=== PATIENT | female | born 1975 | race Caucasian/White ===

== ENCOUNTER 2017-12-24 12:02 | Emergency (ER) | payer BC ==
[~2017-12-24] VITALS: Ht 162.6 cm; Wt 72.6 kg
[2017-12-24] MEDS ORDERED: ADDERALL 10 MG10 MG PO (12:12)
[2017-12-24] MEDS ORDERED: NORCO 5-325 TA1 EACH PO (12:12)
[2017-12-24] MEDS ORDERED: CEFDINIR300 MG PO (12:34)
[2017-12-24 12:48] LABS: ABSOLUTE EOSINOPHILS 0.1 thou/uL (0.0-0.7); ABSOLUTE LYMPHOCYTES 1.9 thou/uL (0.8-5.3); ABSOLUTE MONOCYTES 0.6 thou/uL (0.0-1.2); ABSOLUTE NEUTROPHILS 2.9 thou/uL (1.6-8.1); BASOPHILS 0.6 %; EOSINOPHILS 1.3 %; HEMATOCRIT 45.3 % (37.0-47.0); HEMOGLOBIN 15.5 gm/dL (12.0-15.0); LYMPHOCYTES 34.6 %; MCH 33.1 pg (26.0-34.0); MCHC 34.3 g/dL (28.0-37.0); MCV 96.7 fL (80.0-100.0); MONOCYTES 10.9 %; MPV 7.8 fl. (7.2-11.1); NUCLEATED RBCS 0 /100WBC; PLATELET COUNT* 182 thou/uL (150-400); POLYS 52.6 %; RBC 4.68 mil/uL (4.20-5.00); RDW-CV 12.9 % (10.5-14.5); WBC 5.5 thou/uL (4.0-11.0)
[2017-12-24 13:47] VITALS: BP 121/82
== END 2017-12-24 13:52 | disposition home or self-care (01) ==
LOC: M.ERS 12:02
PROVIDERS: Family Medicine
DX: J03.90 Acute tonsillitis, unspecified (principal); Z90.710 Acquired absence of both cervix and uterus; Z88.0 Allergy status to penicillin